=== PATIENT | female | born 1990 | race African-American/Black ===

== ENCOUNTER 2017-05-01 01:43 | Emergency (ER) | payer OTHER ==
[2017-05-01 01:48] VITALS: BP 114/64
[2017-05-01] MEDS ORDERED: DECADRON IM ONE (04:04)
[2017-05-01] MEDS ORDERED: PEPCID PO ONE (04:05)
[2017-05-01] MEDS ORDERED: BENADRYL IM ONE (04:05)
--- NOTE | 2017-05-01 04:20 | Emergency Department Report ---
ED Allergic Reaction HPI - General Chief complaint: Allergic Reaction Stated complaint: ALLERGIC REACTION Time Seen by Provider: 05/01/17 04:04 Source: patient Mode of arrival: Ambulatory Limitations: No Limitations - History of Present Illness Initial Comments: 26-year-old female past medical history none presents with complaint of itchy rash to legs arms and anterior upper chest area. Patient states that she ate tuna fish which she has had an allergic reaction to in the past. Patient states she ate this yesterday on April 29. Patient complaining of hives and itchy skin on arms legs and upper anterior chest region. Patient denies any shortness of breath no wheezing no audible respiratory distress or visible respiratory distress. Patient has visible hives on skin. Patient states she was outdoors yesterday. Possibly bitten by ants or mosquitoes. When I asked the patient she is does state that she recently traveled and stayed in a hotel within the last 2 weeks with her significant other. Patient denies exposure to any allergens other than possibly tuna fish. Patient denies any use of new cosmetics creams or lotions soaps, pets. Patient states she was using Benadryl with minimal relief of her itchiness MD Complaint: allergic reaction, hives Onset/Timin -: days(s) Exposure: food (possible exposure to tunafish), insect bite Symptoms: itching Severity: moderate - Related Data Previous Rx's Medication Instructions Recorded Last Taken Type Cetirizine HCl [ZyrTEC] 10 mg PO QDAY PRN #30 capsule 05/01/17 Unknown Rx EPINEPHrine (NF) [Epipen (Nf)] 0.3 mg IM ONCE PRN #1 syringekit 05/01/17 Unknown Rx Hydrocortisone 1% [Hydrocortisone 1 applicatio TP TID PRN #1 tube 05/01/17 Unknown Rx 1% CREAM] Hydroxyzine HCl 25 mg PO Q8H PRN #25 tablet 05/01/17 Unknown Rx Prednisone [predniSONE 5 mg (6-Day 5 mg PO .TAPER #1 tab.ds.pk 05/01/17 Unknown Rx Pack, 21 Tabs)] Allergies Allergy/AdvReac Type Severity Reaction Status Date / Time Fish Containing Products Allergy Swelling Verified 05/01/17 01:59 shellfish derived Allergy Swelling Verified 05/01/17 02:00 ED Review of Systems ROS: Stated complaint: ALLERGIC REACTION Other details as noted in HPI Constitutional: denies: chills, fever Eyes: denies: eye pain, eye discharge, vision change ENT: denies: ear pain, throat pain Respiratory: denies: cough, shortness of breath, wheezing Cardiovascular: denies: chest pain, palpitations Endocrine: no symptoms reported Gastrointestinal: denies: abdominal pain, nausea, diarrhea Genitourinary: denies: urgency, dysuria, discharge Musculoskeletal: denies: back pain, joint swelling, arthralgia Skin: denies: rash, lesions Neurological: denies: headache, weakness, paresthesias Psychiatric: denies: anxiety, depression Hematological/Lymphatic: denies: easy bleeding, easy bruising ED Past Medical Hx - Past Medical History Previous Medical History?: No - Surgical History Past Surgical History?: No - Social History Smoking Status: Never Smoker Substance Use Type: None - Medications Home Medications: Home Medications Medication Instructions Recorded Confirmed Last Taken Type Cetirizine HCl [ZyrTEC] 10 mg PO QDAY PRN #30 capsule 05/01/17 Unknown Rx EPINEPHrine (NF) [Epipen (Nf)] 0.3 mg IM ONCE PRN #1 syringekit 05/01/17 Unknown Rx Hydrocortisone 1% [Hydrocortisone 1 applicatio TP TID PRN #1 tube 05/01/17 Unknown Rx 1% CREAM] Hydroxyzine HCl 25 mg PO Q8H PRN #25 tablet 05/01/17 Unknown Rx Prednisone [predniSONE 5 mg (6-Day 5 mg PO .TAPER #1 tab.ds.pk 05/01/17 Unknown Rx Pack, 21 Tabs)] ED Physical Exam - General Limitations: No Limitations General appearance: alert, in no apparent distress - Head Head exam: Present: atraumatic, normocephalic - Eye Eye exam: Present: normal appearance, PERRL, EOMI - ENT ENT exam: Present: normal orophraynx (oropharynx is open and patent), mucous membranes moist, other - Neck Neck exam: Present: normal inspection - Respiratory Respiratory exam: Present: normal lung sounds bilaterally. Absent: respiratory distress - Cardiovascular Cardiovascular Exam: Present: regular rate, normal rhythm. Absent: systolic murmur, diastolic murmur, rubs, gallop - GI/Abdominal GI/Abdominal exam: Present: soft, normal bowel sounds - Extremities Exam Extremities exam: Present: normal inspection - Back Exam Back exam: Present: normal inspection - Neurological Exam Neurological exam: Present: alert, oriented X3, CN II-XII intact - Psychiatric Psychiatric exam: Present: normal affect, normal mood - Skin Skin exam: Present: warm, dry, intact, normal color, urticaria (visible hives on arms and legs, lower extremities appear to have some well-demarcated bug bites). Absent: rash ED Course Vital Signs 05/01/17 05/01/17 01:45 02:00 Temperature 98.6 F 98.6 F Pulse Rate 78 78 Respiratory 18 18 Rate Blood Pressure 114/64 Blood Pressure 114/64 [Right] O2 Sat by Pulse 100 100 Oximetry ED Medical Decision Making - Medical Decision Making A/P: Food allergy, possible bug bites 1-prednisone Dosepak, hydroxyzine, Zyrtec, topical hydrocortisone 2-short course Keflex 500 mg twice a day 5 days 3-I educated patient on signs and symptoms of cellulitis and advised her to return to the ED if symptoms worsen 4- EpiPen when necessary Critical care attestation.: If time is entered above; I have spent that time in minutes in the direct care of this critically ill patient, excluding procedure time. ED Disposition Clinical Impression: Hives Bug bites Qualifiers: Encounter type: initial encounter Qualified Code(s): W57.XXXA - Bitten or stung by nonvenomous insect and other nonvenomous arthropods, initial encounter Disposition: - TO HOME OR SELFCARE Is pt being admited?: No Does the pt Need Aspirin: No Condition: Stable Instructions: Urticaria (ED), Insect Bite or Sting (ED) Prescriptions: Cetirizine HCl [ZyrTEC] 10 mg PO QDAY PRN #30 capsule PRN Reason: Itching EPINEPHrine (NF) [Epipen (Nf)] 0.3 mg IM ONCE PRN #1 syringekit PRN Reason: Anaphylaxis Hydrocortisone 1% [Hydrocortisone 1% CREAM] 1 applicatio TP TID PRN #1 tube PRN Reason: Itching Hydroxyzine HCl 25 mg PO Q8H PRN #25 tablet PRN Reason: Itching Prednisone [predniSONE 5 mg (6-Day Pack, 21 Tabs)] 5 mg PO .TAPER #1 tab.ds.pk Referrals: [facility] [Provider Group] - 3-5 Days JOSIE LEBLANC MD [Staff Physician] - 3-5 Days Forms: Accompanied Note, Work/School Release Form(ED) Time of Disposition: 05:18
== END 2017-05-01 05:39 | disposition home or self-care (01) ==
LOC: ED 01:43
DX: L50.9 Urticaria, unspecified (principal); W57.XXXA Bitten or stung by nonvenomous insect and other nonvenomous arthropods, initial encounter; Y93.9 Activity, unspecified; Y92.9 Unspecified place or not applicable; Y99.9 Unspecified external cause status
CPT/HCPCS: 96372; 99282; J1100; J1200